=== PATIENT | male | born 1995 | race Caucasian/White ===

== ENCOUNTER 2017-07-17 15:14 | Inpatient (IN) | payer BC ==
[2017-07-17 16:23] VITALS: BMI 22.8
--- NOTE | 2017-07-17 17:36 | HP ---
COWS - Scale Resting Pulse: 0= [place] 80 or Below Sweatin=Flushed/Facial Moisture Restless Observation: 3= Extraneous Movement Pupil Size: 2= Moderately Dilated Bone or Joint Aches: 2= Severe Diffuse Aches Runny Nose/ Eye Tearin= Runny Nose/Eyes GI Upset > 30mins: 3= Vomiting/Diarrhea Tremor Observation: 2= Slight Tremor Visible Yawning Observation: 2= >3x During Session Anxiety or Irritability: 2=Irritable/Anxious Goose Flesh Skin: 0=Smooth Skin COWS Score: 20 Admission ROS S - HPI Chief Complaint: I ENEED HELP TO STOP USING HEROIN,COCAINE AND MARIJUANA Allergies/Adverse Reactions: Allergies Allergy/AdvReac Type Severity Reaction Status Date / Time No Known Allergies Allergy Verified 07/17/17 17:31 History of Present Illness: THIS 21 YEARS OLD MALE WITH HEROIN,COCAINE AND MARIJUANA DEPENDENCE,SEEKING DETOX,NEVER BEEN IN DETOX NICOTINE DEPENDENCE WEIGHT LOSS Exam Limitations: No Limitations - Ebola screening Have you traveled outside of the country in the last 21 days: No Have you had contact with anyone from an Ebola affected area: No Have you been sick,other than usual withdrawal symptoms: No Do you have a fever: No - Review of Systems Constitutional: Chills, Diaphoresis, Loss of Appetite, Malaise, Night Sweats, Changes in sleep, Weakness, Unintentional Wgt. Loss EENT: reports: Tearing, Nose Congestion Respiratory: reports: No Symptoms reported, Other Cardiac: reports: No Symptoms Reported GI: reports: Diarrhea, Nausea, Vomiting, Abdominal cramping : reports: No Symptoms Reported Musculoskeletal: reports: Back Pain, Joint Pain, Muscle Pain, Joint Stiffness Integumentary: reports: Dryness Neuro: reports: Headache, Tremors Endocrine: reports: No Symptoms Reported Hematology: reports: No Symptoms Reported Psychiatric: reports: No Sypmtoms Reported Other Systems: Reviewed and Negative Patient History - Patient Medical History Hx Anemia: No Hx Asthma: No Hx Chronic Obstructive Pulmonary Disease (COPD): No Hx Cancer: No Hx Cardiac Disorders: No Hx Congestive Heart Failure: No Hx Hypertension: No Hx Hypercholesterolemia: No Hx Pacemaker: No HX Cerebrovascular Accident: No Hx Seizures: No Hx Dementia: No Hx Diabetes: No Hx Gastrointestinal Disorders: No Hx Liver Disease: No Hx Genitourinary Disorders: No Hx Sexually Transmitted Disorders: No Hx Renal Disease (ESRD): No Hx Thyroid Disease: No Hx Human Immunodeficiency Virus (HIV): No (LAST 04/10 NEGATIVE) Hx Hepatitis C: No Hx Depression: No Hx Suicide Attempt: No Hx Bipolar Disorder: No Hx Schizophrenia: No Other Medical History: NO SUICIDAL,NO HOMICIDAL - Patient Surgical History Past Surgical History: No - PPD History Previous Implant?: Yes Documented Results: Negative w/o proof Implanted On Prior R Admission?: No PPD to be Administered?: Yes - Smoking Cessation Smoking history: Current every day smoker Have you smoked in the past 12 months: Yes Aproximately how many cigarettes per day: 2 Cigars Per Day: 0 Hx Chewing Tobacco Use: No Initiated information on smoking cessation: Yes 'Breaking Loose' booklet given: 07/17/17 - Substance & Tx. History Hx Alcohol Use: No Hx Substance Use: Yes Substance Use Type: Cocaine, Heroin, Marijuana Hx Substance Use Treatment: No - Substances Abused Heroin Route: Injection Frequency: Daily Amount used: 10 BAGS Age of first use: 16 Date of Last Use: 07/16/17 Cocaine Route: Smoking Frequency: 1-3 times last 30 days Amount used: 40$ Age of first use: 20 Date of Last Use: 07/15/17 Marijuana/Hashish Route: Smoking Frequency: Daily Amount used: 10$ Age of first use: 12 Date of Last Use: 07/16/17 Family Disease History - Family Disease History Family History: Denies Admission Physical Exam S - Vital Signs Vital Signs: Vital Signs - 24 hr 07/17/17 16:11 Temperature 98.8 F Pulse Rate 65 Respiratory 18 Rate Blood Pressure 118/72 - Physical General Appearance: Yes: Moderate Distress, Tremorous, Irritable, Sweating, Anxious HEENTM: Yes: Normal ENT Inspection, MAIKEL, Pharynx Normal Respiratory: Yes: Lungs Clear, Normal Breath Sounds, No Respiratory Distress Neck: Yes: Within Normal Limits, Supple, Trachea in good position Breast: Yes: Within Normal Limits Cardiology: Yes: Within Normal Limits, Regular Rhythm, Regular Rate, S1, S2 Abdominal: Yes: Within Normal Limits, Normal Bowel Sounds, Non Tender, Flat, Soft Genitourinary: Yes: Within Normal Limits Back: Yes: Muscle Spasm Musculoskeletal: Yes: full range of Motion, Back pain, Joint Stiffness, Muscle Pain Extremities: Yes: Within Normal Limits, Normal Range of Motion, Tremors Neurological: Yes: event technician II-XII NML intact, Fully Oriented, Alert, Motor Strength 5/5 Integumentary: Yes: Dry, Track Garay Lymphatic: Yes: Within Normal Limits - Diagnostic (1) Opioid dependence with withdrawal Current Visit: Yes Status: Acute (2) Cocaine dependence Current Visit: Yes Status: Acute (3) Cannabis dependence Current Visit: Yes Status: Acute (4) Weight loss Current Visit: Yes Status: Acute Cleared for Admission [facility] - Detox or Rehab [facility] Level of Care: Medically Managed Detox Regimen/Protocol: Methadone [facility] Breath Alcohol Content Breath Alcohol Content: 0 Urine Drug Screen - Results Drug Screen Negative: No Urine Drug Screen Results: THC-Marijuana, JEMIMA-Cocaine, OPI-Opiates
[2017-07-17] MEDS ORDERED: LOPERAMIDE HCL 2 MG CAPSULE PO PRN (17:52)
[2017-07-17] MEDS ORDERED: MAGNESIUM HYDROX 2400MG/30ML ORAL SUSPENSION 30 ML CUP PO PRN (17:52)
[2017-07-17] MEDS ORDERED: MAGNESIUM CITRATE 300 ML BOTTLE PO PRN (17:52)
[2017-07-17] MEDS ORDERED: MAG HYDROX/AL HYDROX/SIMETH 30 ML UNIT-DOSE CUP PO PRN (17:52)
[2017-07-17] MEDS ORDERED: ACETAMINOPHEN 325 MG TABLET (FP) PO PRN (17:52)
[2017-07-17] MEDS ORDERED: guaiFENesin/D-METHORPHAN HB 10 ML UNIT-DOSE CUPS PO PRN (17:52)
[2017-07-17] MEDS ORDERED: METHADONE HCL 10 MG TABLET (FOR DETOX USE ONLY) PO ONE ×2 (17:52→23:00)
[2017-07-17] MEDS ORDERED: IBUPROFEN 400 MG TABLET (FP) PO PRN (17:52)
[2017-07-17] MEDS ORDERED: MENTHOL/PHENOL 1 EACH UD MM PRN (17:52)
[2017-07-17] MEDS ORDERED: P-EPHED 60MG/TRIPROLIDI 2.5MG TABLET PO PRN (17:52)
[2017-07-17] MEDS ORDERED: cloNIDine HCL 0.1 MG TABLET PO ONE (17:55)
[2017-07-17] MEDS: diazePAM 5 MG TABLET PO PRN (18:49)
[2017-07-17] MEDS: THIAMINE HCL 100 MG TABLET (FP) PO SCH (23:45)
[2017-07-18] MEDS: CYCLOBENZAPRINE HCL 10 MG TABLET (FP) PO PRN ×3 (06:01→22:08)
[2017-07-18] MEDS: diazePAM 5 MG TABLET PO PRN ×5 (06:01→23:33)
--- NOTE | 2017-07-18 08:45 | EKG ---
Test Reason : Blood Pressure : / mmHG Vent. Rate : 078 BPM Atrial Rate : 078 BPM P-R Int : 174 ms QRS Dur : 092 ms QT Int : 476 ms P-R-T Axes : 073 077 059 degrees QTc Int : 542 ms NORMAL SINUS RHYTHM WITH SINUS ARRHYTHMIA PROLONGED QT ABNORMAL ECG NO PREVIOUS ECGS AVAILABLE Confirmed by MD YENI, TRUMAN ([id number]) on 07/18/2017 8:45:04 AM Referred By: Confirmed By:TRUMAN JAIME MD
[2017-07-18] MEDS ORDERED: METHADONE HCL 10 MG TABLET (FOR DETOX USE ONLY) PO ONE (10:00)
[2017-07-18 10:14] LABS: MCH 30.9 pg (25.7-33.7); MCHC 33.2 g/dl (32.0-35.9); MEAN CELL VOLUME 93.1 fl (80-96); MEAN PLT VOLUME 9.4 fl (7.5-11.1); PLATELET COUNT 205 K/MM3 (134-434); WHITE BLOOD COUNT 6.2 K/mm3 (4.0-10.0)
[2017-07-18 10:19] LABS: URINE APPEARANCE CLEAR; URINE BILIRUBIN NEGATIVE (NEGATIVE); URINE BLOOD NEGATIVE (NEGATIVE); URINE COLOR YELLOW; URINE GLUCOSE (UA) NEGATIVE (NEGATIVE); URINE KETONE NEGATIVE (NEGATIVE); URINE LEUK ESTERASE NEGATIVE (NEGATIVE); URINE NITRITE NEGATIVE (NEGATIVE); URINE PROTEIN NEGATIVE (NEGATIVE)
[2017-07-18 10:29] LABS: ALBUMIN 3.4 g/dl (3.4-5.0); ANION GAP 4 (8-16); CALCIUM 8.5 mg/dL (8.5-10.1); CO2 29 mmol/L (21-32); CREATININE 0.9 mg/dL (0.7-1.3); GLUCOSE,RANDOM 107 mg/dL (74-106); SGOT/AST 18 U/L (15-37); SGPT/ALT 27 U/L (12-78)
[2017-07-18 10:30] LABS: ALK PHOS 84 U/L (45-117); BILIRUBIN,TOTAL 0.7 mg/dL (0.2-1.0); TOT PROT 5.8 g/dl (6.4-8.2)
[2017-07-18] MEDS: PRENATAL VITAMINS W/ FOLIC ACID TABLET (FP) PO SCH (10:42)
--- NOTE | 2017-07-18 14:47 | PN ---
BHS COWS - Scale Resting Pulse: 0= [place] 80 or Below Sweatin=Flushed/Facial Moisture Restless Observation: 3= Extraneous Movement Pupil Size: 0= Normal to Room Light Bone or Joint Aches: 2= Severe Diffuse Aches Runny Nose/ Eye Tearin= Runny Nose/Eyes GI Upset > 30mins: 2= Nausea/Diarrhea Tremor Observation of Outstretched Hands: 2= Slight Tremor Visible Yawning Observation: 1= 1-2x During Session Anxiety or Irritability: 2=Irritable/Anxious Goose Flesh Skin: 0=Smooth Skin COWS Score: 16 BHS Progress Note (SOAP) Subjective: Anxious, restless, sweating, back pain, stomach ache, generalized aching Objective: 07/18/17 14:46 Last Vital Signs Temp Pulse Resp BP Pulse Ox 98.8 F 60 20 115/68 07/18/17 13:49 07/18/17 13:49 07/18/17 13:49 07/18/17 13:49 Laboratory Tests 07/18/17 07/18/17 07/18/17 07:30 07:30 07:30 WBC 6.2 RBC 4.25 Hgb 13.2 Hct 39.6 MCV 93.1 MCH 30.9 MCHC 33.2 RDW 15.0 Plt Count 205 MPV 9.4 Sodium 141 Potassium 4.0 Chloride 108 H Carbon Dioxide 29 Anion Gap 4 L BUN 16 Creatinine 0.9 Creat Clearance w eGFR > 60 Random Glucose 107 H Calcium 8.5 Total Bilirubin 0.7 AST 18 ALT 27 Alkaline Phosphatase 84 Total Protein 5.8 L Albumin 3.4 Urine Color Urine Appearance Urine pH Ur Specific [place] Urine Protein Urine Glucose (UA) Urine Ketones Urine Blood Urine Nitrite Urine Bilirubin Urine Urobilinogen RPR Titer Nonreactive 07/18/17 08:50 WBC RBC Hgb Hct MCV MCH MCHC RDW Plt Count MPV Sodium Potassium Chloride Carbon Dioxide Anion Gap BUN Creatinine Creat Clearance w eGFR Random Glucose Calcium Total Bilirubin AST ALT Alkaline Phosphatase Total Protein Albumin Urine Color Yellow Urine Appearance Clear Urine pH 6.0 Ur Specific [place] 1.025 Urine Protein Negative Urine Glucose (UA) Negative Urine Ketones Negative Urine Blood Negative Urine Nitrite Negative Urine Bilirubin Negative Urine Urobilinogen 2.0 RPR Titer Labs noted Assessment: 07/18/17 14:46 Withdrawal symptoms Plan: Continue detox
[2017-07-18] MEDS: NICOTINE 14 MG/24 HOURS TOPICAL PATCH TD SCH (18:37)
[2017-07-18] MEDS: NICOTINE POLACRILEX 2 MG GUM BUC PRN ×2 (18:39→22:31)
[2017-07-18] MEDS: THIAMINE HCL 100 MG TABLET (FP) PO SCH (22:08)
[2017-07-18] MEDS: diphenhydrAMINE HCL 50 MG CAPSULE PO PRN (22:08)
[2017-07-19] MEDS ORDERED: METHADONE HCL 5 MG TABLET (FOR DETOX USE ONLY) PO ONE (10:00)
[2017-07-19] MEDS: NICOTINE 14 MG/24 HOURS TOPICAL PATCH TD SCH (10:45)
[2017-07-19] MEDS: PRENATAL VITAMINS W/ FOLIC ACID TABLET (FP) PO SCH (10:45)
[2017-07-19] MEDS: CYCLOBENZAPRINE HCL 10 MG TABLET (FP) PO PRN ×2 (10:45→22:04)
[2017-07-19] MEDS: diazePAM 5 MG TABLET PO PRN ×4 (10:45→23:10)
--- NOTE | 2017-07-19 10:53 | PN ---
BHS COWS - Scale Resting Pulse: 0= [place] 80 or Below Sweatin=Flushed/Facial Moisture Restless Observation: 1= Difficult to Sit Still Pupil Size: 0= Normal to Room Light Bone or Joint Aches: 2= Severe Diffuse Aches Runny Nose/ Eye Tearin= Runny Nose/Eyes GI Upset > 30mins: 1= Stomach Cramp Tremor Observation of Outstretched Hands: 2= Slight Tremor Visible Yawning Observation: 0= None Anxiety or Irritability: 2=Irritable/Anxious Goose Flesh Skin: 0=Smooth Skin COWS Score: 12 BHS Progress Note (SOAP) Subjective: Body aches, sweating, anxiety, tremors, interrupted sleep, runny nose, restless Objective: 07/19/17 10:51 Vital Signs - 8 hr 07/19/17 07/19/17 03:23 09:09 Temperature 97.2 F L Pulse Rate 47 L Respiratory 18 18 Rate Blood Pressure 109/64 Laboratory Tests 07/18/17 07/18/17 07/18/17 07:30 07:30 07:30 WBC 6.2 RBC 4.25 Hgb 13.2 Hct 39.6 MCV 93.1 MCH 30.9 MCHC 33.2 RDW 15.0 Plt Count 205 MPV 9.4 Sodium 141 Potassium 4.0 Chloride 108 H Carbon Dioxide 29 Anion Gap 4 L BUN 16 Creatinine 0.9 Creat Clearance w eGFR > 60 Random Glucose 107 H Calcium 8.5 Total Bilirubin 0.7 AST 18 ALT 27 Alkaline Phosphatase 84 Total Protein 5.8 L Albumin 3.4 Urine Color Urine Appearance Urine pH Ur Specific [place] Urine Protein Urine Glucose (UA) Urine Ketones Urine Blood Urine Nitrite Urine Bilirubin Urine Urobilinogen RPR Titer Nonreactive 07/18/17 08:50 WBC RBC Hgb Hct MCV MCH MCHC RDW Plt Count MPV Sodium Potassium Chloride Carbon Dioxide Anion Gap BUN Creatinine Creat Clearance w eGFR Random Glucose Calcium Total Bilirubin AST ALT Alkaline Phosphatase Total Protein Albumin Urine Color Yellow Urine Appearance Clear Urine pH 6.0 Ur Specific [place] 1.025 Urine Protein Negative Urine Glucose (UA) Negative Urine Ketones Negative Urine Blood Negative Urine Nitrite Negative Urine Bilirubin Negative Urine Urobilinogen 2.0 RPR Titer Labs noted Assessment: 07/19/17 10:52 Withdrawal sx Plan: continue detox
[2017-07-19] MEDS: NICOTINE POLACRILEX 2 MG GUM BUC PRN (19:42)
[2017-07-19] MEDS: diphenhydrAMINE HCL 50 MG CAPSULE PO PRN (22:04)
[2017-07-19] MEDS: THIAMINE HCL 100 MG TABLET (FP) PO SCH (22:04)
[2017-07-20] MEDS: diazePAM 5 MG TABLET PO PRN ×3 (05:53→16:43)
[2017-07-20] MEDS ORDERED: METHADONE HCL 5 MG TABLET (FOR DETOX USE ONLY) PO ONE (10:00)
[2017-07-20] MEDS: PRENATAL VITAMINS W/ FOLIC ACID TABLET (FP) PO SCH (10:25)
[2017-07-20] MEDS: NICOTINE 14 MG/24 HOURS TOPICAL PATCH TD SCH (10:26)
[2017-07-20] MEDS: hydrOXYzine PAMOATE 50 MG CAPSULE (FP) PO PRN ×2 (11:24→22:04)
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
[2017-07-20] MEDS: DOCUSATE SODIUM 100 MG CAPSULE (FP) PO SCH ×2 (13:12→22:03)
[2017-07-20] MEDS: NICOTINE POLACRILEX 2 MG GUM BUC PRN (19:07)
[2017-07-20] MEDS: THIAMINE HCL 100 MG TABLET (FP) PO SCH (22:03)
[2017-07-20] MEDS: CYCLOBENZAPRINE HCL 10 MG TABLET (FP) PO PRN (22:03)
[2017-07-21] MEDS: diphenhydrAMINE HCL 50 MG CAPSULE PO PRN (00:31)
[2017-07-21] MEDS: CYCLOBENZAPRINE HCL 10 MG TABLET (FP) PO PRN ×2 (08:42→22:30)
[2017-07-21] MEDS ORDERED: METHADONE HCL 10 MG TABLET (FOR DETOX USE ONLY) PO ONE (10:00)
[2017-07-21] MEDS: NICOTINE 14 MG/24 HOURS TOPICAL PATCH TD SCH (10:26)
[2017-07-21] MEDS: DOCUSATE SODIUM 100 MG CAPSULE (FP) PO SCH ×2 (10:26→22:30)
[2017-07-21] MEDS: PRENATAL VITAMINS W/ FOLIC ACID TABLET (FP) PO SCH (10:26)
[2017-07-21] MEDS: hydrOXYzine PAMOATE 50 MG CAPSULE (FP) PO PRN ×3 (12:25→22:30)
--- NOTE | 2017-07-21 13:13 | PN ---
BHS Progress Note (SOAP) Subjective: Interrupted Sleep, Sweating, Anxious. Objective: PT. A & O X 3, OBSERVED AMBULATING ON UNIT. NO ACUTE DISTRESS. 07/21/17 13:11 Vital Signs Temperature 96.1 F L 07/21/17 09:24 Pulse Rate 83 07/21/17 09:24 Respiratory Rate 16 07/21/17 09:24 Blood Pressure 121/62 07/21/17 09:24 O2 Sat by Pulse Oximetry (%) Laboratory Tests 07/18/17 07/18/17 07/18/17 07:30 07:30 07:30 WBC 6.2 RBC 4.25 Hgb 13.2 Hct 39.6 MCV 93.1 MCH 30.9 MCHC 33.2 RDW 15.0 Plt Count 205 MPV 9.4 Sodium 141 Potassium 4.0 Chloride 108 H Carbon Dioxide 29 Anion Gap 4 L BUN 16 Creatinine 0.9 Creat Clearance w eGFR > 60 Random Glucose 107 H Calcium 8.5 Total Bilirubin 0.7 AST 18 ALT 27 Alkaline Phosphatase 84 Total Protein 5.8 L Albumin 3.4 Urine Color Urine Appearance Urine pH Ur Specific [place] Urine Protein Urine Glucose (UA) Urine Ketones Urine Blood Urine Nitrite Urine Bilirubin Urine Urobilinogen RPR Titer Nonreactive 07/18/17 08:50 WBC RBC Hgb Hct MCV MCH MCHC RDW Plt Count MPV Sodium Potassium Chloride Carbon Dioxide Anion Gap BUN Creatinine Creat Clearance w eGFR Random Glucose Calcium Total Bilirubin AST ALT Alkaline Phosphatase Total Protein Albumin Urine Color Yellow Urine Appearance Clear Urine pH 6.0 Ur Specific [place] 1.025 Urine Protein Negative Urine Glucose (UA) Negative Urine Ketones Negative Urine Blood Negative Urine Nitrite Negative Urine Bilirubin Negative Urine Urobilinogen 2.0 RPR Titer LABS NOTED. Assessment: 07/21/17 13:12 WITHDRAWAL SYMPTOMS. Plan: CONTINUE DETOX.
[2017-07-21] MEDS: NICOTINE POLACRILEX 2 MG GUM BUC PRN (16:55)
[2017-07-21] MEDS: THIAMINE HCL 100 MG TABLET (FP) PO SCH (22:30)
[2017-07-22] MEDS ORDERED: METHADONE HCL 5 MG TABLET (FOR DETOX USE ONLY) PO ONE (06:00)
[2017-07-22 06:30] VITALS: BP 105/69; PULSE 69; TEMP 97.2
[2017-07-22] MEDS: NICOTINE 14 MG/24 HOURS TOPICAL PATCH TD SCH (10:28)
[2017-07-22] MEDS: PRENATAL VITAMINS W/ FOLIC ACID TABLET (FP) PO SCH (10:28)
[2017-07-22] MEDS: DOCUSATE SODIUM 100 MG CAPSULE (FP) PO SCH (10:28)
[2017-07-22] MEDS: hydrOXYzine PAMOATE 50 MG CAPSULE (FP) PO PRN (10:28)
--- NOTE | 2017-07-22 11:58 | DS ---
[facility] Detox Discharge Summary Admission Date: 07/17/17 Discharge Date: 07/22/17 - History Present History: Cannabis Dependence, Cocaine Dependence, Opioid Dependence Additional Comments: DETOX COMPLETED. ALERT O X 3. NAD. PT REMINDED TO FOLLOW UP WITH PCP AT [place] [facility]. Pertinent Past History: HX POSITIVE PPD - Physical Exam Results Vital Signs: Vital Signs Temperature 97.2 F L 07/22/17 06:30 Pulse Rate 69 07/22/17 06:30 Respiratory Rate 18 07/22/17 06:30 Blood Pressure 105/69 07/22/17 06:30 O2 Sat by Pulse Oximetry (%) Pertinent Admission Physical Exam Findings: WITHDRAWAL SX Laboratory Last Values WBC 6.2 K/mm3 (4.0-10.0) 07/18/17 07:30 RBC 4.25 M/mm3 (4.00-5.60) 07/18/17 07:30 Hgb 13.2 GM/dL (11.7-16.9) 07/18/17 07:30 Hct 39.6 % (35.4-49) 07/18/17 07:30 MCV 93.1 fl (80-96) 07/18/17 07:30 MCH 30.9 pg (25.7-33.7) 07/18/17 07:30 MCHC 33.2 g/dl (32.0-35.9) 07/18/17 07:30 RDW 15.0 % (11.9-15.9) 07/18/17 07:30 Plt Count 205 K/MM3 (134-434) 07/18/17 07:30 MPV 9.4 fl (7.5-11.1) 07/18/17 07:30 Sodium 141 mmol/L (136-145) 07/18/17 07:30 Potassium 4.0 mmol/L (3.5-5.1) 07/18/17 07:30 Chloride 108 mmol/L (98-107) H 07/18/17 07:30 Carbon Dioxide 29 mmol/L (21-32) 07/18/17 07:30 Anion Gap 4 (8-16) L 07/18/17 07:30 BUN 16 mg/dL (7-18) 07/18/17 07:30 Creatinine 0.9 mg/dL (0.7-1.3) 07/18/17 07:30 Creat Clearance w eGFR > 60 (>60) 07/18/17 07:30 Random Glucose 107 mg/dL (74-106) H 07/18/17 07:30 Calcium 8.5 mg/dL (8.5-10.1) 07/18/17 07:30 Total Bilirubin 0.7 mg/dL (0.2-1.0) 07/18/17 07:30 AST 18 U/L (15-37) 07/18/17 07:30 ALT 27 U/L (12-78) 07/18/17 07:30 Alkaline Phosphatase 84 U/L (45-117) 07/18/17 07:30 Total Protein 5.8 g/dl (6.4-8.2) L 07/18/17 07:30 Albumin 3.4 g/dl (3.4-5.0) 07/18/17 07:30 Urine Color Yellow 07/18/17 08:50 Urine Appearance Clear 07/18/17 08:50 Urine pH 6.0 (5.0-8.0) 07/18/17 08:50 Ur Specific [place] 1.025 (1.005-1.025) 07/18/17 08:50 Urine Protein Negative (NEGATIVE) 07/18/17 08:50 Urine Glucose (UA) Negative (NEGATIVE) 07/18/17 08:50 Urine Ketones Negative (NEGATIVE) 07/18/17 08:50 Urine Blood Negative (NEGATIVE) 07/18/17 08:50 Urine Nitrite Negative (NEGATIVE) 07/18/17 08:50 Urine Bilirubin Negative (NEGATIVE) 07/18/17 08:50 Urine Urobilinogen 2.0 mg/dL (0.2-1.0) 07/18/17 08:50 RPR Titer Nonreactive (NONREACTIVE) 07/18/17 07:30 - Treatment Hospital Course: Detox Protocol Followed, Detoxed Safely, Responded well, Discharged Condition Good, Rehab Referral Accepted Patient has Accepted a Rehab Referral to: [facility] - Medication Discharge Medications: Ambulatory Orders NK [No Known Home Medication] 07/17/17 - AMA Did Patient Leave Against Medical Advice: No
== END 2017-07-22 13:03 | disposition other institution (70) | DRG 773 ==
LOC: YASAS 15:14 → Y3N 17:20
PROVIDERS: ADMIT Internal Medicine; ATTEND Internal Medicine
PROC: HZ2ZZZZ Detoxification Services for Substance Abuse Treatment (ICD-10-PCS; principal; 2017-07-17)
DX: F11.23 Opioid dependence with withdrawal (principal); F14.20 Cocaine dependence, uncomplicated; F12.20 Cannabis dependence, uncomplicated; F17.210 Nicotine dependence, cigarettes, uncomplicated; Z87.898 Personal history of other specified conditions; Z59.0 Homelessness
CPT/HCPCS: 36415; 71020-TC; 80053; 81003; 85027; 86593; 93005; 93010

== ENCOUNTER 2017-07-22 13:28 | Inpatient (IN) | payer BC ==
[2017-07-22] MEDS ORDERED: LOPERAMIDE HCL 2 MG CAPSULE PO PRN (17:27)
[2017-07-22] MEDS ORDERED: IBUPROFEN 400 MG TABLET (FP) PO PRN (17:27)
[2017-07-22] MEDS ORDERED: MAGNESIUM HYDROX 2400MG/30ML ORAL SUSPENSION 30 ML CUP PO PRN (17:27)
[2017-07-22] MEDS ORDERED: MAG HYDROX/AL HYDROX/SIMETH 30 ML UNIT-DOSE CUP PO PRN (17:27)
[2017-07-22] MEDS ORDERED: MAGNESIUM CITRATE 300 ML BOTTLE PO PRN (17:27)
[2017-07-22] MEDS ORDERED: ACETAMINOPHEN 325 MG TABLET (FP) PO PRN (17:27)
[2017-07-22] MEDS ORDERED: P-EPHED 60MG/TRIPROLIDI 2.5MG TABLET PO PRN (17:27)
[2017-07-22] MEDS ORDERED: MENTHOL/PHENOL 1 EACH UD MM PRN (17:27)
[2017-07-22] MEDS ORDERED: guaiFENesin/D-METHORPHAN HB 10 ML UNIT-DOSE CUPS PO PRN (17:27)
--- NOTE | 2017-07-22 17:31 | HP ---
[facility] Rehab Assess/Revision - Admission History Admitted to Rehab from: [facility] Date of Admission to Rehab: 07/22/2017 - Vital signs Vital Signs: VSS - Findings Detox History & Physical reviewed: Yes Concur with findings: Yes Inpatient Rehab Admission - Initial Determination Are CD services needed?: Yes Free of communicable disease: Yes Not in need of hospitalization: Yes - Rehab Admission Criteria Poor recovery environment: Yes Patient is meeting Inpatient Rehab admission criteria:: Yes
[2017-07-22] MEDS: hydrOXYzine PAMOATE 50 MG CAPSULE (FP) PO PRN (18:34)
[2017-07-22] MEDS: NICOTINE POLACRILEX 2 MG GUM BUC PRN (20:48)
[2017-07-22] MEDS: diphenhydrAMINE HCL 50 MG CAPSULE PO PRN (21:43)
[2017-07-22] MEDS: THIAMINE HCL 100 MG TABLET (FP) PO SCH (21:43)
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
[2017-07-23] MEDS: PRENATAL VITAMINS W/ FOLIC ACID TABLET (FP) PO SCH (10:03)
[2017-07-23] MEDS: hydrOXYzine PAMOATE 50 MG CAPSULE (FP) PO PRN ×3 (10:04→21:06)
[2017-07-23] MEDS: NICOTINE 14 MG/24 HOURS TOPICAL PATCH TD SCH (10:04)
[2017-07-23 10:14] LABS: HIV 1 & 2 AB NEGATIVE; HIV 1 AGp24 NEGATIVE
[2017-07-23] MEDS: DOCUSATE SODIUM 100 MG CAPSULE (FP) PO SCH (21:06)
[2017-07-23] MEDS: diphenhydrAMINE HCL 50 MG CAPSULE PO PRN (21:06)
[2017-07-23] MEDS: THIAMINE HCL 100 MG TABLET (FP) PO SCH (21:07)
[2017-07-24] MEDS: hydrOXYzine PAMOATE 50 MG CAPSULE (FP) PO PRN ×2 (10:13→18:47)
[2017-07-24] MEDS: PRENATAL VITAMINS W/ FOLIC ACID TABLET (FP) PO SCH (10:13)
[2017-07-24] MEDS: NICOTINE POLACRILEX 2 MG GUM BUC PRN ×2 (10:13→18:47)
[2017-07-24] MEDS: NICOTINE 14 MG/24 HOURS TOPICAL PATCH TD SCH (10:13)
[2017-07-24] MEDS: DOCUSATE SODIUM 100 MG CAPSULE (FP) PO SCH (21:28)
[2017-07-24] MEDS: THIAMINE HCL 100 MG TABLET (FP) PO SCH (21:29)
[2017-07-24] MEDS: diphenhydrAMINE HCL 50 MG CAPSULE PO PRN (21:29)
[2017-07-25] MEDS: hydrOXYzine PAMOATE 50 MG CAPSULE (FP) PO PRN ×4 (10:14→23:38)
[2017-07-25] MEDS: PRENATAL VITAMINS W/ FOLIC ACID TABLET (FP) PO SCH (10:15)
[2017-07-25] MEDS: NICOTINE 14 MG/24 HOURS TOPICAL PATCH TD SCH (10:15)
[2017-07-25] MEDS: NICOTINE POLACRILEX 2 MG GUM BUC PRN ×3 (10:15→19:22)
[2017-07-25] MEDS: THIAMINE HCL 100 MG TABLET (FP) PO SCH (21:53)
[2017-07-25] MEDS: DOCUSATE SODIUM 100 MG CAPSULE (FP) PO SCH (21:53)
[2017-07-25] MEDS: diphenhydrAMINE HCL 50 MG CAPSULE PO PRN (21:54)
[2017-07-26] MEDS: NICOTINE 14 MG/24 HOURS TOPICAL PATCH TD SCH ×2 (10:11→11:22)
[2017-07-26] MEDS: PRENATAL VITAMINS W/ FOLIC ACID TABLET (FP) PO SCH (10:11)
[2017-07-26] MEDS: NICOTINE POLACRILEX 2 MG GUM BUC PRN ×2 (13:24→17:03)
[2017-07-26] MEDS: hydrOXYzine PAMOATE 50 MG CAPSULE (FP) PO PRN ×3 (13:24→21:19)
[2017-07-26] MEDS: NAPROXEN 500 MG TABLET (FP) PO SCH ×2 (15:18→21:20)
[2017-07-26] MEDS: PANTOPRAZOLE 40 MG TABLET (FP) PO SCH (15:18)
[2017-07-26] MEDS: THIAMINE HCL 100 MG TABLET (FP) PO SCH (21:20)
[2017-07-26] MEDS: DOCUSATE SODIUM 100 MG CAPSULE (FP) PO SCH (21:20)
[2017-07-27] MEDS: NAPROXEN 500 MG TABLET (FP) PO SCH ×2 (10:29→21:47)
[2017-07-27] MEDS: hydrOXYzine PAMOATE 50 MG CAPSULE (FP) PO PRN (10:29)
[2017-07-27] MEDS: PANTOPRAZOLE 40 MG TABLET (FP) PO SCH (10:29)
[2017-07-27] MEDS: PRENATAL VITAMINS W/ FOLIC ACID TABLET (FP) PO SCH (10:29)
[2017-07-27] MEDS: NICOTINE 14 MG/24 HOURS TOPICAL PATCH TD SCH (10:30)
[2017-07-27] MEDS: NICOTINE POLACRILEX 2 MG GUM BUC PRN ×3 (10:31→18:13)
[2017-07-27] MEDS: GABAPENTIN 100 MG CAPSULE (FP) PO SCH ×2 (15:46→21:48)
[2017-07-27] MEDS: THIAMINE HCL 100 MG TABLET (FP) PO SCH (21:46)
[2017-07-27] MEDS: CYCLOBENZAPRINE HCL 5 MG TABLET PO SCH (21:47)
[2017-07-27] MEDS: cloNIDine HCL 0.1 MG TABLET PO SCH (21:47)
[2017-07-27] MEDS: DOCUSATE SODIUM 100 MG CAPSULE (FP) PO SCH (21:47)
[2017-07-28] MEDS: GABAPENTIN 100 MG CAPSULE (FP) PO SCH ×3 (06:31→21:10)
[2017-07-28] MEDS: CYCLOBENZAPRINE HCL 5 MG TABLET PO SCH ×3 (06:32→21:10)
[2017-07-28] MEDS: PRENATAL VITAMINS W/ FOLIC ACID TABLET (FP) PO SCH (10:00)
[2017-07-28] MEDS: NICOTINE 14 MG/24 HOURS TOPICAL PATCH TD SCH (10:00)
[2017-07-28] MEDS: cloNIDine HCL 0.1 MG TABLET PO SCH ×2 (10:00→21:10)
[2017-07-28] MEDS: PANTOPRAZOLE 40 MG TABLET (FP) PO SCH (10:00)
[2017-07-28] MEDS: NAPROXEN 500 MG TABLET (FP) PO SCH ×2 (10:00→21:10)
[2017-07-28] MEDS: hydrOXYzine PAMOATE 50 MG CAPSULE (FP) PO PRN ×2 (10:03→18:19)
[2017-07-28] MEDS ORDERED: PT OWN MED DRAWER 7, Y5N ONE (10:03)
[2017-07-28] MEDS: NICOTINE POLACRILEX 2 MG GUM BUC PRN ×3 (10:06→18:07)
[2017-07-28] MEDS: DOCUSATE SODIUM 100 MG CAPSULE (FP) PO SCH (21:10)
[2017-07-28] MEDS: THIAMINE HCL 100 MG TABLET (FP) PO SCH (21:10)
[2017-07-28] MEDS: diphenhydrAMINE HCL 50 MG CAPSULE PO PRN (21:10)
[2017-07-29] MEDS: CYCLOBENZAPRINE HCL 5 MG TABLET PO SCH ×3 (06:29→21:49)
[2017-07-29] MEDS: GABAPENTIN 100 MG CAPSULE (FP) PO SCH ×3 (06:29→21:49)
[2017-07-29] MEDS: PRENATAL VITAMINS W/ FOLIC ACID TABLET (FP) PO SCH (10:00)
[2017-07-29] MEDS: NAPROXEN 500 MG TABLET (FP) PO SCH ×2 (10:00→21:49)
[2017-07-29] MEDS: PANTOPRAZOLE 40 MG TABLET (FP) PO SCH (10:00)
[2017-07-29] MEDS: cloNIDine HCL 0.1 MG TABLET PO SCH ×2 (10:00→21:48)
[2017-07-29] MEDS: NICOTINE 14 MG/24 HOURS TOPICAL PATCH TD SCH (10:01)
[2017-07-29] MEDS: NICOTINE POLACRILEX 2 MG GUM BUC PRN ×3 (10:02→21:51)
[2017-07-29] MEDS: DOCUSATE SODIUM 100 MG CAPSULE (FP) PO SCH (21:49)
[2017-07-29] MEDS: THIAMINE HCL 100 MG TABLET (FP) PO SCH (21:49)
[2017-07-30] MEDS: GABAPENTIN 100 MG CAPSULE (FP) PO SCH ×4 (06:22→22:00)
[2017-07-30] MEDS: CYCLOBENZAPRINE HCL 5 MG TABLET PO SCH ×3 (06:22→21:55)
[2017-07-30] MEDS: NICOTINE POLACRILEX 2 MG GUM BUC PRN ×5 (08:44→22:25)
[2017-07-30] MEDS: NAPROXEN 500 MG TABLET (FP) PO SCH ×2 (10:20→21:55)
[2017-07-30] MEDS: NICOTINE 14 MG/24 HOURS TOPICAL PATCH TD SCH ×2 (10:20→11:29)
[2017-07-30] MEDS: cloNIDine HCL 0.1 MG TABLET PO SCH ×2 (10:20→21:53)
[2017-07-30] MEDS: PRENATAL VITAMINS W/ FOLIC ACID TABLET (FP) PO SCH (10:21)
[2017-07-30] MEDS: PANTOPRAZOLE 40 MG TABLET (FP) PO SCH (10:21)
[2017-07-30] MEDS: DOCUSATE SODIUM 100 MG CAPSULE (FP) PO SCH (21:53)
[2017-07-30] MEDS: THIAMINE HCL 100 MG TABLET (FP) PO SCH (21:53)
[2017-07-31] MEDS: CYCLOBENZAPRINE HCL 5 MG TABLET PO SCH ×3 (06:23→21:41)
[2017-07-31] MEDS: GABAPENTIN 100 MG CAPSULE (FP) PO SCH ×3 (06:23→21:41)
[2017-07-31] MEDS: NICOTINE 14 MG/24 HOURS TOPICAL PATCH TD SCH (10:55)
[2017-07-31] MEDS: cloNIDine HCL 0.1 MG TABLET PO SCH ×2 (11:28→21:41)
[2017-07-31] MEDS: PANTOPRAZOLE 40 MG TABLET (FP) PO SCH (11:28)
[2017-07-31] MEDS: PRENATAL VITAMINS W/ FOLIC ACID TABLET (FP) PO SCH (11:28)
[2017-07-31] MEDS: NAPROXEN 500 MG TABLET (FP) PO SCH ×2 (11:28→21:41)
[2017-07-31] MEDS: DOCUSATE SODIUM 100 MG CAPSULE (FP) PO SCH (21:41)
[2017-07-31] MEDS: THIAMINE HCL 100 MG TABLET (FP) PO SCH (21:41)
[2017-08-01] MEDS: GABAPENTIN 100 MG CAPSULE (FP) PO SCH ×3 (07:45→21:34)
[2017-08-01] MEDS: CYCLOBENZAPRINE HCL 5 MG TABLET PO SCH ×3 (07:45→21:34)
[2017-08-01] MEDS: cloNIDine HCL 0.1 MG TABLET PO SCH ×2 (10:35→21:34)
[2017-08-01] MEDS: PANTOPRAZOLE 40 MG TABLET (FP) PO SCH (10:35)
[2017-08-01] MEDS: PRENATAL VITAMINS W/ FOLIC ACID TABLET (FP) PO SCH (10:35)
[2017-08-01] MEDS: NICOTINE 14 MG/24 HOURS TOPICAL PATCH TD SCH (10:35)
[2017-08-01] MEDS: NAPROXEN 500 MG TABLET (FP) PO SCH ×2 (10:35→21:34)
[2017-08-01] MEDS: NICOTINE POLACRILEX 2 MG GUM BUC PRN ×2 (19:24→21:36)
[2017-08-01] MEDS: DOCUSATE SODIUM 100 MG CAPSULE (FP) PO SCH (21:33)
[2017-08-01] MEDS: THIAMINE HCL 100 MG TABLET (FP) PO SCH (21:33)
[2017-08-02] MEDS: GABAPENTIN 100 MG CAPSULE (FP) PO SCH ×3 (06:47→21:05)
[2017-08-02] MEDS: CYCLOBENZAPRINE HCL 5 MG TABLET PO SCH ×3 (06:47→21:05)
[2017-08-02] MEDS: PANTOPRAZOLE 40 MG TABLET (FP) PO SCH (10:34)
[2017-08-02] MEDS: NICOTINE 14 MG/24 HOURS TOPICAL PATCH TD SCH (10:34)
[2017-08-02] MEDS: cloNIDine HCL 0.1 MG TABLET PO SCH ×2 (10:34→21:06)
[2017-08-02] MEDS: PRENATAL VITAMINS W/ FOLIC ACID TABLET (FP) PO SCH (10:34)
[2017-08-02] MEDS: NAPROXEN 500 MG TABLET (FP) PO SCH ×2 (10:34→21:06)
--- NOTE | 2017-08-02 12:43 | PN ---
[facility] Progress Note Note: started on suboxxone 2mg s/l daily, patient will be going to [facility] for residential treatment adn will be able to receive medication assisted treatment. Counseled re: suboxone risks and benefits discussed. can increases dose by 2mg s/l every 3 days as needed
[2017-08-02] MEDS: BUPRENORPHINE/NALOXONE 2 MG/0.5 MG FILM PACKET SL SCH (13:31)
[2017-08-02] MEDS: DOCUSATE SODIUM 100 MG CAPSULE (FP) PO SCH (21:05)
[2017-08-02] MEDS: THIAMINE HCL 100 MG TABLET (FP) PO SCH (21:06)
[2017-08-02] MEDS: NICOTINE POLACRILEX 2 MG GUM BUC PRN (21:08)
[2017-08-03] MEDS: CYCLOBENZAPRINE HCL 5 MG TABLET PO SCH ×3 (06:06→22:22)
[2017-08-03] MEDS: GABAPENTIN 100 MG CAPSULE (FP) PO SCH ×3 (07:17→22:22)
[2017-08-03] MEDS: cloNIDine HCL 0.1 MG TABLET PO SCH ×2 (11:03→22:22)
[2017-08-03] MEDS: BUPRENORPHINE/NALOXONE 2 MG/0.5 MG FILM PACKET SL SCH (11:03)
[2017-08-03] MEDS: PRENATAL VITAMINS W/ FOLIC ACID TABLET (FP) PO SCH (11:03)
[2017-08-03] MEDS: NICOTINE 14 MG/24 HOURS TOPICAL PATCH TD SCH (11:03)
[2017-08-03] MEDS: PANTOPRAZOLE 40 MG TABLET (FP) PO SCH (11:03)
[2017-08-03] MEDS: NAPROXEN 500 MG TABLET (FP) PO SCH ×2 (11:03→22:22)
[2017-08-03] MEDS ORDERED: BUPRENORPHINE/NALOXONE 2 MG/0.5 MG FILM PACKET SL ONE (17:45)
[2017-08-03] MEDS: THIAMINE HCL 100 MG TABLET (FP) PO SCH (22:22)
[2017-08-03] MEDS: DOCUSATE SODIUM 100 MG CAPSULE (FP) PO SCH (22:22)
[2017-08-03] MEDS: diphenhydrAMINE HCL 50 MG CAPSULE PO PRN ×2 (22:23)
[2017-08-04] MEDS: CYCLOBENZAPRINE HCL 5 MG TABLET PO SCH ×3 (06:11→21:47)
[2017-08-04] MEDS: GABAPENTIN 100 MG CAPSULE (FP) PO SCH ×3 (06:12→21:49)
--- NOTE | 2017-08-04 07:06 | PN ---
Psychiatric Progress Note Vital Signs: Vital Signs Period Temp Pulse Resp BP Sys/Driver Pulse Ox Last 24 Hr 97.5 F-97.7 F 68-71 18-18 111-115/67-70 Date of Session: 08/04/17 Chief Complaint:: Discharge Note HPI: Patient addressing Opoid, Cocaine and Cannabis Dependence comorbid with ADHD ROS: +PPD Current Medications: Active Medications Generic Name Dose Route Start Last Admin Trade Name Freq PRN Reason Stop Dose Admin Acetaminophen 650 mg 07/22/17 17:27 Tylenol - PO Q4H PRN FEVER OR PAIN Al Hydroxide/Mg Hydroxide 30 ml 07/22/17 17:27 Mylanta Oral Suspension - PO Q6H PRN DYSPEPSIA Buprenorphine/Naloxone 2 each 08/04/17 10:00 Suboxone 2mg/0.5mg Sl Film - SL 08/09/17 12:57 DAILY CAMRON Clonidine 0.1 mg 07/27/17 22:00 08/03/17 22:22 Catapres - PO Not Given BID CAMRON Cyclobenzaprine HCl 5 mg 07/27/17 22:00 08/04/17 06:11 Cyclobenzaprine Hcl PO 5 mg TID CAMRON Administration Diphenhydramine HCl 50 mg 07/22/17 17:27 08/03/17 22:23 Benadryl - PO 50 mg HSMR1 PRN Administration FOR ITCHING Docusate Sodium 300 mg 07/23/17 22:00 08/03/17 22:22 Colace - PO 300 mg HS CAMRON Administration Eucalyptus/Menthol/Phenol/Sorbitol 1 each 07/22/17 17:27 Cepastat Lozenge - MM Q4H PRN SORE THROAT Gabapentin 100 mg 07/27/17 15:15 08/04/17 06:12 Neurontin - PO Not Given TID CAMRON Guaifenesin 10 ml 07/22/17 17:27 Robitussin Dm - PO Q6H PRN COUGH Hydroxyzine Pamoate 50 mg 07/22/17 17:27 07/28/17 18:19 Vistaril - PO 50 mg Q4H PRN Administration AGITATION Loperamide HCl 4 mg 07/22/17 17:27 Imodium - PO Q6H PRN DIARRHEA Magnesium Hydroxide 30 ml 07/22/17 17:27 Milk Of Magnesia - PO DAILY PRN CONSTIPATION Naproxen 500 mg 07/26/17 14:00 08/03/17 22:22 Naprosyn - PO Not Given BID CAMRON Nicotine 14 mg 07/23/17 10:00 08/03/17 11:03 Nicoderm Patch - TD Not Given DAILY CAMRON Nicotine Polacrilex 2 mg 07/22/17 17:27 08/02/17 21:08 Nicorette Gum - BUC 2 mg Q2H PRN Administration NICOTINE REPLACEMENT RX Pantoprazole Sodium 40 mg 07/26/17 14:00 08/03/17 11:03 Protonix - PO Not Given DAILY CAMRON Multivit/Folic Acid/Iron 1 tab 07/23/17 10:00 08/03/17 11:03 Vitamins (Sjr) - PO 1 tab DAILY CAMRON Administration Pseudoephedrine/Triprolidine 1 combo 07/22/17 17:27 Actifed - PO TID PRN NASAL CONGESTION Thiamine HCl 100 mg 07/22/17 22:00 08/03/17 22:22 Vitamin B1 - PO 100 mg HS CAMRON Administration Current Side Effect: No Lab tests ordered: Yes Lab tests reviewed: Yes Provider note:: Patient will complete this progtram on 08/05/17. He has met his treatment goals and will continue to address his issues in watermelon inspector treatment at [facility]. Told racebook writer that he is participation in this program gives him a different perspective in life. He said that from being in this program, he has learned the things he has to do to maintain abstinence. He is stable for discharge on 08/05/17 Total face to face time:: 35 Mental Status Exam - Mental Status Exam Alert and Oriented to: Time, Place, Person Cognitive Function: Fair Patient Appearance: Well Groomed Mood: Hopeful, Euthymic Affect: Appropriate Patient Behavior: Cooperative Speech Pattern: Clear, Artificially Ventilated Thought Process: Intact, Goal Oriented Thought Disorder: Not Present Hallucinations: Denies Suicidal Ideation: Denies Homicidal Ideation: Denies Insight/Judgement: Fair Sleep: Well Appetite: Good Muscle strength/Tone: Normal Gait/Station: Normal Psychiatric Treatment Plan - Problem List (1) Opioid dependence Current Visit: Yes (2) Cocaine dependence Current Visit: Yes (3) Cannabis dependence Current Visit: No (4) ADHD (attention deficit hyperactivity disorder) Current Visit: Yes (5) Substance-induced anxiety disorder Current Visit: Yes (6) Positive PPD Current Visit: No Initial treatment plan: Patient will be discharged tomorrow and referred to [facility] for watermelon inspector treatment
[2017-08-04] MEDS ORDERED: BUPRENORPHINE/NALOXONE 2 MG/0.5 MG FILM PACKET SL SCH (10:00)
[2017-08-04] MEDS: PRENATAL VITAMINS W/ FOLIC ACID TABLET (FP) PO SCH (10:05)
[2017-08-04] MEDS: NICOTINE 14 MG/24 HOURS TOPICAL PATCH TD SCH (10:05)
[2017-08-04] MEDS: cloNIDine HCL 0.1 MG TABLET PO SCH ×2 (10:05→21:48)
[2017-08-04] MEDS: NAPROXEN 500 MG TABLET (FP) PO SCH ×2 (10:05→21:49)
[2017-08-04] MEDS: PANTOPRAZOLE 40 MG TABLET (FP) PO SCH (10:06)
[2017-08-04] MEDS: NICOTINE POLACRILEX 2 MG GUM BUC PRN ×2 (10:55→21:47)
[2017-08-04] MEDS: DOCUSATE SODIUM 100 MG CAPSULE (FP) PO SCH (21:48)
[2017-08-04] MEDS: THIAMINE HCL 100 MG TABLET (FP) PO SCH (21:49)
[2017-08-05] MEDS: GABAPENTIN 100 MG CAPSULE (FP) PO SCH (06:42)
[2017-08-05] MEDS: CYCLOBENZAPRINE HCL 5 MG TABLET PO SCH (06:42)
[2017-08-05 07:12] VITALS: BP 142/89; PULSE 95; TEMP 98.4
== END 2017-08-05 09:15 | disposition home or self-care (01) | DRG 772 ==
LOC: YASAS 13:28 → Y3W 13:30
PROVIDERS: ADMIT Psychiatry & Neurology Psychiatry; ATTEND Psychiatry & Neurology Psychiatry
PROC: HZ42ZZZ Group Counseling for Substance Abuse Treatment, Cognitive-Behavioral (ICD-10-PCS; principal; 2017-07-22)
DX: F11.20 Opioid dependence, uncomplicated (principal); F14.20 Cocaine dependence, uncomplicated; F17.210 Nicotine dependence, cigarettes, uncomplicated; F90.9 Attention-deficit hyperactivity disorder, unspecified type; F19.280 Other psychoactive substance dependence with psychoactive substance-induced anxiety disorder; R76.11 Nonspecific reaction to tuberculin skin test without active tuberculosis; Z59.0 Homelessness
CPT/HCPCS: 36415; 86803; 87389

== ENCOUNTER 2020-04-21 11:01 | Inpatient (IN) | payer BC ==
--- NOTE | 2020-04-21 12:11 | BHS.RME ---
Substance Use & Tx History - Substance Use History Fentanyl Substance amount: 1 gram Frequency of use: Daily Substance route: Inhalation (ex: sniffing or snorting) Date of Last Use: 04/21/20 Cannabis Substance amount: 7 grams Frequency of use: Daily Substance route: Smoking Date of Last Use: 04/21/20 Alcohol Substance amount: 1 pint Frequency of use: Daily Substance route: Oral Date of Last Use: 04/18/20 (requesting detox for opiates only) - Last Treatment Date of last treatment: 07/22/2017 Where was last treatment: Rehab Physical/Psych/Mental Status - Behavior General Behavior: Increased activity (restlessness, agitation) Eye Contact: Normal Other Behaviors: Mannerisms - Cooperativeness Cooperativeness: Cooperative - Thinking Thought Processes: Goal Directed Thought content: Future oriented - Physical Health Problems Is patient presently having any pain?: No Does patient presently have any injuries (include location): No Does patient currently have a fever: No COWS - Scale Resting Pulse: 0= [place] 80 or Below Sweatin= Chills/Flushing Restless Observation: 0= Sits Still Pupil Size: 0= Normal to Room Light Bone or Joint Aches: 2= Severe Diffuse Aches Runny Nose/ Eye Tearin= Runny Nose/Eyes GI Upset > 30mins: 3= Vomiting/Diarrhea Tremor Observation: 1= Tremor [place], Not Seen Yawning Observation: 1= 1-2x During Session Anxiety or Irritability: 2=Irritable/Anxious Goose Flesh Skin: 3=Piloerection COWS Score: 15 CIWA Nausea/Vomitin Muscle Tremors: 2 Anxiety: 2 Agitation: 2 Paroxysmal Sweats: 2 Orientation: 0-Oriented Tacttile Disturbances: 0-None Auditory Disturbances: 0-None Visual Disturbances: 0-None Headache: 1-Very Mild CIWA-Ar Total Score: 11 Treatment Recommendation - Level of Care Level of Care: Opioid Treatment Program (OTP)
--- NOTE | 2020-04-21 12:18 | HP ---
COWS - Scale Resting Pulse: 0= [place] 80 or Below Sweatin= Chills/Flushing Restless Observation: 0= Sits Still Pupil Size: 0= Normal to Room Light Bone or Joint Aches: 2= Severe Diffuse Aches Runny Nose/ Eye Tearin= Runny Nose/Eyes GI Upset > 30mins: 3= Vomiting/Diarrhea Tremor Observation: 1= Tremor [place], Not Seen Yawning Observation: 1= 1-2x During Session Anxiety or Irritability: 2=Irritable/Anxious Goose Flesh Skin: 3=Piloerection COWS Score: 15 CIWA Score Nausea/Vomitin Muscle Tremors: 2 Anxiety: 2 Agitation: 2 Paroxysmal Sweats: 2 Orientation: 0-Oriented Tacttile Disturbances: 0-None Auditory Disturbances: 0-None Visual Disturbances: 0-None Headache: 1-Very Mild CIWA-Ar Total Score: 11 - Admission Criteria OASAS Guidelines: Admission for Medically Managed Detox: Requires at least one of the followin. CIWA greater than 12 2. Seizures within the past 24 hours 3. Delirium tremens within the past 24 hours 4. Hallucinations within the past 24 hours 5. Acute intervention needed for co occurring medical disorder 6. Acute intervention needed for co occurring psychiatric disorder 7. Severe withdrawal that cannot be handled at a lower level of care (continued vomiting, continued diarrhea, abnormal vital signs) requiring intravenous medication and/or fluids 8. Admitting History and Physical - Smoking History Smoking history: Current every day smoker Have you smoked in the past 12 months: Yes Aproximately how many cigarettes per day: 2 - Alcohol/Substance Use Hx Alcohol Use: No Admission [facility] - [facility] Chief Complaint: I am here to get off drugs and to get help Allergies/Adverse Reactions: Allergies Allergy/AdvReac Type Severity Reaction Status Date / Time No Known Allergies Allergy Verified 07/17/17 17:31 History of Present Illness: 24 year old male with opiate dependence presents for detox. Patient reports alcohol use but has not drank since , he denies OD Patient was previously on suboxone, denies any recent use Exam Limitations: No Limitations - Ebola screening Have you traveled outside of the country in the last 21 days: No Have you had contact with anyone from an Ebola affected area: No Have you been sick,other than usual withdrawal symptoms: No Do you have a fever: No - Review of Systems Constitutional: Chills, Loss of Appetite, Changes in sleep, Weight Stable EENT: reports: Nose Congestion Respiratory: reports: No Symptoms reported Cardiac: reports: No Symptoms Reported GI: reports: Diarrhea, Nausea, Abdominal cramping : reports: No Symptoms Reported Musculoskeletal: reports: Back Pain, Muscle Pain, Muscle Weakness Integumentary: reports: Sweating Neuro: reports: Headache, Tremors Endocrine: reports: No Symptoms Reported Hematology: reports: No Symptoms Reported Psychiatric: reports: Anxious, Depressed Other Systems: Reviewed and Negative Patient History - Patient Medical History Hx Anemia: No Hx Asthma: No Hx Chronic Obstructive Pulmonary Disease (COPD): No Hx Cancer: No Hx Cardiac Disorders: No Hx Congestive Heart Failure: No Hx Hypertension: No Hx Hypercholesterolemia: No Hx Pacemaker: No HX Cerebrovascular Accident: No Hx Seizures: No Hx Dementia: No Hx Diabetes: No Hx Gastrointestinal Disorders: No Hx Liver Disease: No Hx Genitourinary Disorders: No Hx Sexually Transmitted Disorders: No Hx Renal Disease (ESRD): No Hx Thyroid Disease: No Hx Human Immunodeficiency Virus (HIV): No Hx Hepatitis C: No Hx Depression: Yes Hx Suicide Attempt: No Hx Bipolar Disorder: No Hx Schizophrenia: No - Patient Surgical History Past Surgical History: No - PPD History Documented Results: Positive w/proof Implanted On Prior R Admission?: Yes Date: 07/19/17 PPD to be Administered?: No - Smoking Cessation Smoking history: Current every day smoker Have you smoked in the past 12 months: Yes Aproximately how many cigarettes per day: 2 Cigars Per Day: 0 Hx Chewing Tobacco Use: No Initiated information on smoking cessation: Yes 'Breaking Loose' booklet given: 04/21/20 Admission Physical Exam [facility] - Physical General Appearance: Yes: No Apparent Distress HEENTM: Yes: Hearing grossly Normal, Normocephalic, Normal Voice, Pharynx Normal Respiratory: Yes: Chest Non-Tender, Lungs Clear, Normal Breath Sounds, No Respiratory Distress Neck: Yes: No masses,lesions,Nodules, Supple Breast: Yes: Breast Exam Deferred Cardiology: Yes: Regular Rhythm, Regular Rate, S1, S2 Abdominal: Yes: Normal Bowel Sounds, Soft Genitourinary: Yes: Within Normal Limits Back: Yes: Normal Inspection Musculoskeletal: Yes: Back pain, Muscle Pain, Muscle weakness Extremities: Yes: Non-Tender, Tremors 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 intact, Alert, Normal Mood/Affect, Normal Response Integumentary: Yes: Cold, Rash (from scratching) Lymphatic: Yes: Within Normal Limits - Diagnostic (1) Nicotine dependence Current Visit: Yes Status: Chronic Qualifiers: Nicotine product type: cigarettes Substance use status: uncomplicated Qualified Code(s): F17.210 - Nicotine dependence, cigarettes, uncomplicated (2) Opioid dependence with withdrawal Current Visit: Yes Status: Acute (3) Positive PPD Current Visit: Yes Status: Chronic (4) Cannabis dependence Current Visit: Yes Status: Chronic Cleared for Admission [facility] - Detox or Rehab [facility] Level of Care: Medically Managed Detox Regimen/Protocol: Methadone Claeared for Rehab Admission: No Breathalyzer - Breathalyzer Breathalyzer: 0 Urine Drug Screen - Test Device Lot number: [id number] Expiration date: 06/24/21 - Control Is test valid?: Yes - Results Drug screen NEGATIVE: No Urine drug screen results: THC-Marijuana, FEN-Fentanyl Inpatient Rehab Admission - Rehab Decision to Admit Inpatient rehab admission?: No
[2020-04-21] MEDS ORDERED: MENTHOL/PHENOL 1 EACH UD MM PRN (12:20)
[2020-04-21] MEDS ORDERED: BISMUTH SUBSALICYLATE 524 MG/30 ML UD PO PRN (12:20)
[2020-04-21] MEDS ORDERED: NICOTINE POLACRILEX 2 MG GUM BUC PRN (12:20)
[2020-04-21] MEDS ORDERED: MAG HYDROX/AL HYDROX/SIMETH 30 ML UNIT-DOSE CUP PO PRN (12:20)
[2020-04-21] MEDS ORDERED: NALOXONE HCL 0.4 MG/ML VIAL IM PRN (12:20)
[2020-04-21] MEDS ORDERED: ACETAMINOPHEN 325 MG TABLET (FP) PO PRN ×2 (12:20)
[2020-04-21] MEDS ORDERED: MAGNESIUM HYDROX 2400MG/30ML ORAL SUSPENSION 30 ML CUP PO PRN (12:20)
[2020-04-21] MEDS ORDERED: METHOCARBAMOL 500 MG TABLET PO PRN (12:20)
[2020-04-21] MEDS ORDERED: MAGNESIUM CITRATE 300 ML BOTTLE PO PRN (12:20)
[2020-04-21] MEDS ORDERED: METHADONE HCL 10 MG TABLET (FOR DETOX USE ONLY) PO ONE (12:20)
[2020-04-21] MEDS ORDERED: cloNIDine HCL 0.1 MG TABLET PO PRN (12:20)
[2020-04-21] MEDS ORDERED: IBUPROFEN 400 MG TABLET (FP) PO PRN (12:20)
[2020-04-21 12:45] VITALS: BMI 26.6
--- NOTE | 2020-04-21 14:28 | EKG ---
Test Reason : Blood Pressure : / mmHG Vent. Rate : 057 BPM Atrial Rate : 057 BPM P-R Int : 170 ms QRS Dur : 088 ms QT Int : 446 ms P-R-T Axes : 056 073 039 degrees QTc Int : 434 ms SINUS BRADYCARDIA EARLY REPOLARIZATION OTHERWISE NORMAL ECG Confirmed by MD IRMA, JIMMY ([id number]) on 04/21/2020 2:27:58 PM Referred By: TRICIA LUI Confirmed By:JIMMY SOLIS MD
[2020-04-21] MEDS ORDERED: hydrOXYzine PAMOATE 50 MG CAPSULE (FP) PO PRN (15:53)
--- NOTE | 2020-04-21 15:53 | PN ---
BHS Progress Note Note: requests ensure poor eating pattern ensure 90ml po od for satisfaction reports trouble sleep at night continue melatonin reports anxiety vistaril 50 mg po x 1
[2020-04-21] MEDS ORDERED: hydrOXYzine PAMOATE 50 MG CAPSULE (FP) PO ONE (15:54)
[2020-04-21] MEDS: diazePAM 5 MG TABLET PO PRN ×2 (16:48→22:25)
[2020-04-21] MEDS: THIAMINE HCL 100 MG TABLET (FP) PO SCH (22:24)
[2020-04-21] MEDS: MELATONIN 5 MG TABLETS PO SCH (22:24)
[2020-04-22] MEDS ORDERED: METHADONE HCL 5 MG TABLET (FOR DETOX USE ONLY) PO ONE (10:00)
[2020-04-22] MEDS: diazePAM 5 MG TABLET PO PRN (10:17)
[2020-04-22] MEDS: PRENATAL VITAMINS W/ FOLIC ACID TABLET (FP) PO SCH (10:17)
[2020-04-22] MEDS: NICOTINE 7 MG/24 HOURS TOPICAL PATCH TD SCH (10:19)
--- NOTE | 2020-04-22 10:54 | PN ---
BHS COWS - Scale Resting Pulse: 0= [place] 80 or Below Sweatin= No chills or Flushing Restless Observation: 1= Difficult to Sit Still Pupil Size: 1= Pupils >than Normal Bone or Joint Aches: 2= Severe Diffuse Aches Runny Nose/ Eye Tearin= Nasal Congestion GI Upset > 30mins: 2= Nausea/Diarrhea Tremor Observation of Outstretched Hands: 2= Slight Tremor Visible Yawning Observation: 1= 1-2x During Session Anxiety or Irritability: 2=Irritable/Anxious Goose Flesh Skin: 0=Smooth Skin COWS Score: 12 S Progress Note (SOAP) Subjective: alert,irritable,anxious,interrupted sleep,tremor,pain in the body and back,nausea Objective: 04/22/20 10:52 Vital Signs Temperature 97.5 F L 04/22/20 08:55 Pulse Rate 72 04/22/20 08:55 Respiratory Rate 18 04/22/20 08:55 Blood Pressure 126/68 04/22/20 08:55 O2 Sat by Pulse Oximetry (%) 99 04/22/20 05:37 04/22/20 10:53 labs pending Assessment: 04/22/20 10:53 withdrawal symptom Plan: continue detox methadone regimen
[2020-04-22 11:34] LABS: HEMATOCRIT 36.6 % (35.4-49); HEMOGLOBIN 12.2 GM/dL (11.7-16.9); MCH 30.9 pg (25.7-33.7); MCHC 33.2 g/dl (32.0-35.9); MEAN CELL VOLUME 93.1 fl (80-96); MEAN PLT VOLUME 9.8 fl (7.5-11.1); PLATELET COUNT 191 K/MM3 (134-434); RBC 3.93 M/mm3 (4.00-5.60); RDW 14.8 % (11.9-15.9); WHITE BLOOD COUNT 4.8 K/mm3 (4.0-10.0)
[2020-04-22 11:44] LABS: ALBUMIN 2.8 g/dl (3.4-5.0); BILIRUBIN,TOTAL 0.3 mg/dL (0.2-1); BLOOD UREA NITROGEN 16.9 mg/dL (7-18); CALCIUM 8.5 mg/dL (8.5-10.1); POTASSIUM 4.4 mmol/L (3.5-5.1); TOT PROT 4.9 g/dl (6.4-8.2)
--- NOTE | 2020-04-22 12:44 | CONSULT ---
[facility] Psychiatric Consult - Data Date of interview: 04/22/20 Admission source: [facility] Identifying data: Patient is approached by advertising writer at bedside. Mr Barraza declines psychiatric evaluation. " I am doing fine. I have no need to talk to anyone or see psychiatrists. I complete my detox and leave on Wednesday. That's all. " Nursing staff is made aware.
[2020-04-22] MEDS: THIAMINE HCL 100 MG TABLET (FP) PO SCH (22:30)
[2020-04-22] MEDS: MELATONIN 5 MG TABLETS PO SCH (22:30)
[2020-04-23] MEDS: PRENATAL VITAMINS W/ FOLIC ACID TABLET (FP) PO SCH (09:54)
[2020-04-23] MEDS: NICOTINE 7 MG/24 HOURS TOPICAL PATCH TD SCH (09:55)
[2020-04-23] MEDS ORDERED: METHADONE HCL 10 MG TABLET (FOR DETOX USE ONLY) PO ONE (10:00)
--- NOTE | 2020-04-23 10:23 | PN ---
BHS COWS - Scale Resting Pulse: 0= [place] 80 or Below Sweatin= No chills or Flushing Restless Observation: 0= Sits Still Pupil Size: 0= Normal to Room Light Bone or Joint Aches: 1= Mild Discomfort Runny Nose/ Eye Tearin= Nasal Congestion GI Upset > 30mins: 1= Stomach Cramp Tremor Observation of Outstretched Hands: 1= Tremor [place], Not Seen Yawning Observation: 1= 1-2x During Session Anxiety or Irritability: 2=Irritable/Anxious Goose Flesh Skin: 0=Smooth Skin COWS Score: 7 BHS Progress Note (SOAP) Subjective: alert,irritable,anxious,interrupted sleep,pain in the body Objective: 04/23/20 10:19 Vital Signs Temperature 98.4 F 04/23/20 08:39 Pulse Rate 71 04/23/20 08:39 Respiratory Rate 18 04/23/20 08:39 Blood Pressure 131/75 04/23/20 08:39 O2 Sat by Pulse Oximetry (%) 99 04/23/20 06:01 Assessment: 04/23/20 10:19 withdrawal symptom Plan: continue detox methadone regimen,discharge in am
[2020-04-23] MEDS: THIAMINE HCL 100 MG TABLET (FP) PO SCH (21:46)
[2020-04-23] MEDS: MELATONIN 5 MG TABLETS PO SCH (21:46)
[2020-04-24] MEDS ORDERED: METHADONE HCL 5 MG TABLET (FOR DETOX USE ONLY) PO ONE (06:00)
[2020-04-24 09:09] VITALS: BP 123/68; PULSE 63; TEMP 97.3
--- NOTE | 2020-04-24 09:46 | PN ---
BHS COWS - Scale Resting Pulse: 0= [place] 80 or Below Sweatin= No chills or Flushing Restless Observation: 0= Sits Still Pupil Size: 0= Normal to Room Light Bone or Joint Aches: 0= None Runny Nose/ Eye Tearin= None GI Upset > 30mins: 0= None Tremor Observation of Outstretched Hands: 0= None Yawning Observation: 0= None Anxiety or Irritability: 1=Feels Anxious/Irritable Goose Flesh Skin: 0=Smooth Skin COWS Score: 1 BHS Progress Note (SOAP) Subjective: alert,no complaint Objective: 04/24/20 10:18 Vital Signs Temperature 97.3 F L 04/24/20 08:32 Pulse Rate 63 04/24/20 08:32 Respiratory Rate 18 04/24/20 08:32 Blood Pressure 123/68 04/24/20 08:32 O2 Sat by Pulse Oximetry (%) 97 04/24/20 06:10 Assessment: 04/24/20 10:18 detox completed,no withdrawal symptom Plan: stable for discharge today,follow up with after care program [facility] as arrangement
--- NOTE | 2020-04-24 10:20 | DS ---
[facility] Detox Discharge Summary Admission Date: 04/21/20 Discharge Date: 04/24/20 - History Present History: Cannabis Dependence, Opioid Dependence Additional Comments: alert,oriented x 3 ambulation on the unit lung clear abdomen soft,no pain or tenderness stable for discharge follow [facility] with [facility] as arrangement total time of discharge 35 minutes Pertinent Past History: nicotine dependence adhd positive ppd - Physical Exam Results Vital Signs: Vital Signs Temperature 97.3 F L 04/24/20 08:32 Pulse Rate 63 04/24/20 08:32 Respiratory Rate 18 04/24/20 08:32 Blood Pressure 123/68 04/24/20 08:32 O2 Sat by Pulse Oximetry (%) 97 04/24/20 06:10 Pertinent Admission Physical Exam Findings: withdrawal signs and symptoms Laboratory Last Values WBC 4.8 K/mm3 (4.0-10.0) 04/22/20 08:15 RBC 3.93 M/mm3 (4.00-5.60) L 04/22/20 08:15 Hgb 12.2 GM/dL (11.7-16.9) 04/22/20 08:15 Hct 36.6 % (35.4-49) 04/22/20 08:15 MCV 93.1 fl (80-96) 04/22/20 08:15 MCH 30.9 pg (25.7-33.7) 04/22/20 08:15 MCHC 33.2 g/dl (32.0-35.9) 04/22/20 08:15 RDW 14.8 % (11.9-15.9) 04/22/20 08:15 Plt Count 191 K/MM3 (134-434) 04/22/20 08:15 MPV 9.8 fl (7.5-11.1) 04/22/20 08:15 Sodium 143 mmol/L (136-145) 04/22/20 08:15 Potassium 4.4 mmol/L (3.5-5.1) 04/22/20 08:15 Chloride 109 mmol/L (98-107) H 04/22/20 08:15 Carbon Dioxide 29 mmol/L (21-32) 04/22/20 08:15 Anion Gap 5 MMOL/L (8-16) L 04/22/20 08:15 BUN 16.9 mg/dL (7-18) 04/22/20 08:15 Creatinine 1.0 mg/dL (0.55-1.3) 04/22/20 08:15 Est GFR (CKD-EPI)AfAm 119.86 04/22/20 08:15 Est GFR (CKD-EPI)NonAf 103.41 04/22/20 08:15 Random Glucose 95 mg/dL (74-106) 04/22/20 08:15 Calcium 8.5 mg/dL (8.5-10.1) 04/22/20 08:15 Total Bilirubin 0.3 mg/dL (0.2-1) 04/22/20 08:15 AST 17 U/L (15-37) 04/22/20 08:15 ALT 21 U/L (13-61) 04/22/20 08:15 Alkaline Phosphatase 73 U/L (45-117) 04/22/20 08:15 Total Protein 4.9 g/dl (6.4-8.2) L 04/22/20 08:15 Albumin 2.8 g/dl (3.4-5.0) L 04/22/20 08:15 Syphilis Serology Non-reactive (NONREACTIVE) 04/22/20 08:15 COVID-19 (KRISTAL) Not detected (Not Detected) 04/21/20 08:27 - Treatment Hospital Course: Detox Protocol Followed, Detoxed Safely, Responded well, Discharged Condition Good, Rehab Referral Accepted ([facility]) - Medication Discharge Medications: Ambulatory Orders NK [No Known Home Medication] 04/21/20 - Diagnosis (1) Opioid dependence with withdrawal Status: Acute (2) ADHD (attention deficit hyperactivity disorder) Status: Acute (3) Cannabis dependence Status: Chronic (4) Nicotine dependence Status: Chronic Qualifiers: Nicotine product type: cigarettes Substance use status: uncomplicated Qualified Code(s): F17.210 - Nicotine dependence, cigarettes, uncomplicated (5) Positive PPD Status: Chronic - AMA Did Patient Leave Against Medical Advice: No
== END 2020-04-24 09:28 | disposition home or self-care (01) | DRG 773 ==
LOC: YASAS 11:01 → Y3N 12:31
PROVIDERS: ADMIT Allergy & Immunology; ATTEND Allergy & Immunology
PROC: HZ2ZZZZ Detoxification Services for Substance Abuse Treatment (ICD-10-PCS; principal; 2020-04-21)
DX: F11.23 Opioid dependence with withdrawal (principal); F10.230 Alcohol dependence with withdrawal, uncomplicated; F12.20 Cannabis dependence, uncomplicated; F17.210 Nicotine dependence, cigarettes, uncomplicated; F32.9 Major depressive disorder, single episode, unspecified; F90.9 Attention-deficit hyperactivity disorder, unspecified type; R76.11 Nonspecific reaction to tuberculin skin test without active tuberculosis
CPT/HCPCS: 36415; 71046-TC-FY; 80053; 85027; 86780; 93005; 93010; U0003